=== PATIENT | female | born 1990 | race Caucasian/White ===

== ENCOUNTER 2017-02-06 18:43 | Inpatient (IN) | payer BC ==
[~2017-02-06] VITALS: Ht 177.8 cm; Wt 100.8 kg
--- NOTE | ~2017-02-06 | O ---
[place], [place] OPERATIVE NOTE [id number] UNIT #: [id number] ROOM: 504 DOCTOR: SCOTT THORNTON MD BIRTHDATE: [birth year] DOS: 02/06/2017 PREOPERATIVE DIAGNOSIS: Acute appendicitis. POSTOPERATIVE DIAGNOSIS: Acute appendicitis. PROCEDURE: Laparoscopic appendectomy. SURGEON: Scott Thornton M.D. PRIMARY CARE NURSE: MS3. ANESTHESIA: General with endotracheal intubation. INDICATIONS: This is a 26-year-old lady with a history of acute appendicitis. She is here for laparoscopic appendectomy. The procedure and its complications were explained to the patient in detail. Complications that were discussed included but were not limited to bleeding, infection, hematoma/seroma/abscess formation, and prolonged postoperative pain. She agreed to proceed. DESCRIPTION OF PROCEDURE: After identifying the patient, the patient was brought to the operating suite and laid in the supine position. After induction of general anesthesia, timeout procedure was called and took and a Byrd catheter was inserted into the urinary bladder. The left upper extremity was stuck to the patient's side. The parts were then painted and draped in the usual sterile fashion. An incision above the umbilicus was made. The skin and the subcutaneous tissue were incised in a transverse fashion. The fascia was incised and 2 stay sutures with 0 Vicryl were taken. The peritoneum was inserted and a 12 mm Dez port was introduced and pneumoperitoneum was created. Under direct vision, a left lower quadrant incision of 12 mm and a suprapubic incision of 5 mm were made and appropriate size ports were introduced. The patient was done in a Trendelenburg right side up position. The appendix was found to be acutely inflamed and had some peritoneal adhesions. These were taken down with the help of electrocautery and some bleeding from the mesoappendix was controlled with the help of endoclips. After the entire appendix and the mesoappendix were mobilized, both these structures were then stapled across with the help of an Endo-NIK stapler. The appendix was then removed from the peritoneal cavity and sent for histopathological diagnosis. Hemostasis was confirmed. Thereafter, the suprapubic and the left lower quadrant ports were removed and there was no bleeding seen. The umbilical port was also removed and the 2 stay sutures were tied together. Additional two sutures with 0 Vicryl were taken to close the fascia. Thereafter, local anesthesia was infiltrated on the wound edges (1% plain lidocaine) and the edges of the skin were then approximated with the help of 4-0 Vicryl in a subcuticular running fashion. Dressings were placed, Byrd catheter was removed. The patient was extubated uneventfully and brought back to the recovery room in stable fashion. There were no complications. Dr. Scott Thornton, the attending surgeon, was present throughout the operating case. [place], [place] OPERATIVE NOTE NAME: NEGRA MCKEON UNIT #: [id number] ROOM: [facility] DOCTOR: SCOTT THORNTON MD BIRTHDATE: [birth year] Scott Thornton MD CM:OPRECORD:OPERATIVE NOTE [id number] SCOTT THORNTON MD 02/07/17 0918 interface
[2017-02-06 19:50] LABS: BILIRUBIN NEGATIVE (NEGATIVE); BLOOD NEGATIVE (NEGATIVE); CLARITY SL CLOUDY (CLEAR); COLOR YELLOW (YELLOW); GLUCOSE NEGATIVE (NEGATIVE); KETONE NEGATIVE (NEGATIVE); LEUKO ESTERASE NEGATIVE (NEGATIVE); NITRITE NEGATIVE (NEGATIVE); PROTEIN NEGATIVE (NEGATIVE); SPECIFIC GRAVITY 1.015 (1.005-1.030); UROBILINOGEN 0.2 E.U./dl (0.2-1.0)
[2017-02-06 19:54] LABS: BASO % 0.2 % (0.0-1.0); EOS % 0.1 % (1.0-4.0); HEMOGLOBIN 13.1 g/dl (12.0-16.0); IG # 0.1 10*3/uL (0.0-0.1); LYMPH # 1.8 10*3/uL (1.3-4.4); LYMPH % 12.4 % (27.0-41.0); MEAN CELL VOLUME 81.9 fl (81.0-99.0); MEAN CORPUSCULAR HGB 27.5 pg (27.0-31.0); MEAN CORPUSCULAR HGB CONC 33.6 g/dl (33.0-37.0); MEAN PLATELET VOLUME 9.4 fl (9.6-12.3); MONO # 0.8 10*3/uL (0.1-1.0); MONO % 5.8 % (3.0-9.0); NEUT # 11.6 10*3/uL (2.3-7.9); NEUT % 81.1 % (47.0-73.0); PLATELET COUNT AUTOMATED 201 10*3/uL (130-400); RED BLOOD COUNT 4.76 10*6/uL (4.10-5.10); RED CELL DISTRI WIDTH 12.7 % (0-14.5); WHITE BLOOD COUNT 14.3 10*3/uL (4.8-10.8)
[2017-02-06 20:04] LABS: EPITHELIAL CELLS 25-30
[2017-02-06 20:05] LABS: BACTERIA TRACE; URINE REFLEX COMMENT NO (NO); WBC 0-2 wbc/hpf (0-5)
[2017-02-06 20:12] LABS: ALBUMIN 3.8 gm/dl (3.1-4.5); ALKALINE PHOSPHATASE 71 U/L (45-117); BILIRUBIN, TOTAL 0.3 mg/dl (0.2-1.0); BUN 10 mg/dl (7-24); C-REACTIVE PROTEIN 2.45 MG/DL (0-0.3); CARBON DIOXIDE 29 mmol/L (21-32); CHLORIDE 106 mmol/L (98-107); EST GLOM FILT AFRICAN AMERICAN > 60 ml/min; GLUCOSE 106 mg/dL (65-99); POTASSIUM 3.6 mmol/L (3.5-5.1); SGOT/AST 15 IU/L (3-35); SGPT/ALT 37 U/L (12-78); SODIUM 142 mmol/L (136-145); TOTAL PROTEIN 7.4 gm/dL (6.4-8.2)
[2017-02-06 23:10] VITALS: BP 140/78
[2017-02-07] VITALS (7 sets, daily range): BP systolic 104–138; BP diastolic 48–81
[2017-02-07 01:05] LABS: CPK 54 U/L (26-192)
[2017-02-07 01:07] LABS: CKMB < 0.5 ng/ml (0.5-3.6); TROPONIN I < 0.015 ng/ml (<0.045)
[2017-02-07 06:07] LABS: BASO % 0.2 % (0.0-1.0); EOS % 0.2 % (1.0-4.0); HEMATOCRIT 38.9 % (37.0-47.0); HEMOGLOBIN 12.9 g/dl (12.0-16.0); IG # 0.1 10*3/uL (0.0-0.1); LYMPH # 2.7 10*3/uL (1.3-4.4); MEAN CELL VOLUME 81.4 fl (81.0-99.0); MEAN CORPUSCULAR HGB CONC 33.2 g/dl (33.0-37.0); MEAN PLATELET VOLUME 9.6 fl (9.6-12.3); MONO # 0.9 10*3/uL (0.1-1.0); MONO % 6.5 % (3.0-9.0); NEUT # 9.4 10*3/uL (2.3-7.9); NEUT % 71.7 % (47.0-73.0); PLATELET COUNT AUTOMATED 221 10*3/uL (130-400); RED BLOOD COUNT 4.78 10*6/uL (4.10-5.10); RED CELL DISTRI WIDTH 12.8 % (0-14.5)
[2017-02-07 06:15] LABS: CPK 56 U/L (26-192)
[2017-02-07 06:23] LABS: CKMB < 0.5 ng/ml (0.5-3.6); TROPONIN I < 0.015 ng/ml (<0.045)
[2017-02-07 06:29] LABS: ALBUMIN 3.7 gm/dl (3.1-4.5); BUN 7 mg/dl (7-24); CARBON DIOXIDE 24 mmol/L (21-32); CHLORIDE 109 mmol/L (98-107); GLUCOSE 109 mg/dL (65-99); POTASSIUM 3.6 mmol/L (3.5-5.1); SODIUM 142 mmol/L (136-145)
[2017-02-07 06:40] LABS: ALKALINE PHOSPHATASE 75 U/L (45-117); BILIRUBIN, TOTAL 0.5 mg/dl (0.2-1.0); CHOLESTEROL 170 mg/dL (<200); EST GLOM FILT AFRICAN AMERICAN > 60 ml/min; FREE T4 0.86 ng/dl (0.76-1.46); HDL CHOLESTEROL 61 mg/dl (40-60); LDL CHOLESTEROL 90 mg/dL (9-159); PHOSPHOROUS 2.4 mg/dL (2.5-4.9); SGOT/AST 13 IU/L (3-35); SGPT/ALT 35 U/L (12-78); TOTAL PROTEIN 7.3 gm/dL (6.4-8.2); TRIGLYCERIDES 97 mg/dl (<150); VLDL CHOLESTEROL 19 mg/dL (6-40)
[2017-02-07 08:46] LABS: FOLIC ACID 11.85 ng/mL (>5.38); VITAMIN D, 25-HYDROXY 17.7 ng/mL (30-100)
[2017-02-07 10:08] LABS: HEMOGLOBIN A1c 5.5 % (4.8-5.6)
[2017-02-07] MEDS ORDERED: VITAMIN D-32000 UNI1 PO (13:26)
[2017-02-07] MEDS ORDERED: HYDROCODONE BIT1 T11 PO (13:26)
== END 2017-02-07 14:25 | disposition home or self-care (01) | DRG 854 ==
LOC: ED 18:43 → EDHOLD 22:28 → 5E 22:46
PROVIDERS: Hospitalist; Physician Assistant
PROC: 0DTJ4ZZ Resection of Appendix, Percutaneous Endoscopic Approach (ICD-10-PCS; principal; 2017-02-07)
DX: A41.9 Sepsis, unspecified organism (principal); K35.89 Other acute appendicitis; E66.9 Obesity, unspecified; Z68.31 Body mass index [BMI] 31.0-31.9, adult

== ENCOUNTER 2018-04-14 15:44 | Emergency (ER) | payer BC ==
[~2018-04-14] VITALS: Wt 108.9 kg
[~2018-04-14 15:44] MED LIST: HYDROCODONE BIT1 T11 PO; VITAMIN D-32000 UNI1 PO
[2018-04-14] MEDS ORDERED: Motrin,Rufen800 MG PO (16:56)
== END 2018-04-14 17:00 | disposition home or self-care (01) ==
LOC: ED 15:44
DX: S93.602A Unspecified sprain of left foot, initial encounter (principal); M25.572 Pain in left ankle and joints of left foot; Z79.899 Other long term (current) drug therapy; W17.89XA Other fall from one level to another, initial encounter; Y93.89 Activity, other specified; Y92.89 Other specified places as the place of occurrence of the external cause; Y99.8 Other external cause status

== ENCOUNTER → 2019-05-25 | Outpatient (CLI) | payer BC ==
[~2019-05-25] MED LIST changes: +Motrin,Rufen800 MG PO
[2019-05-25 10:07] LABS: BASO % 0.3 % (0.0-1.0); EOS % 0.3 % (1.0-4.0); HEMATOCRIT 41.5 % (37.0-47.0); HEMOGLOBIN 13.8 g/dl (12.0-16.0); LYMPH # 2.3 10*3/uL (1.3-4.4); LYMPH % 35.8 % (27.0-41.0); MEAN CORPUSCULAR HGB 27.3 pg (27.0-31.0); MEAN CORPUSCULAR HGB CONC 33.3 g/dl (33.0-37.0); MEAN PLATELET VOLUME 9.1 fl (9.6-12.3); MONO # 0.4 10*3/uL (0.1-1.0); MONO % 6.8 % (3.0-9.0); NEUT # 3.7 10*3/uL (2.3-7.9); NEUT % 56.5 % (47.0-73.0); PLATELET COUNT AUTOMATED 219 10*3/uL (130-400); RED BLOOD COUNT 5.06 10*6/uL (4.10-5.10); RED CELL DISTRI WIDTH 12.9 % (0-14.5); WHITE BLOOD COUNT 6.5 10*3/uL (4.8-10.8)
[2019-05-25 10:40] LABS: ALBUMIN 4.2 gm/dl (3.1-4.5); ALKALINE PHOSPHATASE 69 U/L (45-117); BUN 11 mg/dl (7-24); CHLORIDE 105 mmol/L (98-107); CREATININE 0.89 mg/dL (0.55-1.02); POTASSIUM 4.1 mmol/L (3.5-5.1); SGOT/AST 11 IU/L (3-35); SGPT/ALT 21 U/L (12-78); SODIUM 140 mmol/L (136-145); TOTAL PROTEIN 7.8 gm/dL (6.4-8.2)
== END | disposition home or self-care (01) ==
LOC: LAB 09:48
PROVIDERS: Nurse Practitioner Family
DX: M25.551 Pain in right hip (principal); M25.571 Pain in right ankle and joints of right foot; M25.572 Pain in left ankle and joints of left foot; R53.83 Other fatigue; E66.9 Obesity, unspecified

== ENCOUNTER → 2019-06-09 | Outpatient (CLI) | payer BC ==
[2019-06-11 07:06] LABS: DVVTMIXRFX CHG; LUPUS DRVVT 48.7 sec (0.0-47.0); PTT-LA 57.8 sec (0.0-51.9)
[2019-06-11 08:08] LABS: HEXAGONAL PHASE PHOSPHOLIPID 29 sec (0-11); LUPUS REFLEX INTERPRETATION Comment: (.)
== END | disposition home or self-care (01) ==
LOC: LAB 09:20
PROVIDERS: Nurse Practitioner Family
DX: R76.0 Raised antibody titer (principal)

== ENCOUNTER → 2019-09-03 | Outpatient (CLI) | payer BC | END | disposition home or self-care (01) | LOC: MRI 07:41 | DX: S86.891A Other injury of other muscle(s) and tendon(s) at lower leg level, right leg, initial encounter (principal); S86.892A Other injury of other muscle(s) and tendon(s) at lower leg level, left leg, initial encounter; X58.XXXD Exposure to other specified factors, subsequent encounter ==

== ENCOUNTER → 2019-09-06 | Outpatient (CLI) | payer BC | END | disposition home or self-care (01) | LOC: CT 00:43 | DX: J32.9 Chronic sinusitis, unspecified (principal); G44.52 New daily persistent headache (NDPH) ==

== ENCOUNTER → 2019-12-08 | Outpatient (CLI) | payer BC | END | disposition home or self-care (01) | LOC: LAB 09:34 → US 16:00 | PROVIDERS: Nurse Practitioner Women's Health | DX: Z34.81 Encounter for supervision of other normal pregnancy, first trimester (principal); Z3A.09 9 weeks gestation of pregnancy ==

== ENCOUNTER 2019-12-14 08:40 | Emergency (ER) | payer BC ==
[~2019-12-14] VITALS: Ht 175.2 cm; Wt 107.0 kg
== END 2019-12-14 13:45 | disposition home or self-care (01) ==
LOC: ED 08:40
DX: O26.851 Spotting complicating pregnancy, first trimester (principal); Z3A.12 12 weeks gestation of pregnancy; Z23 Encounter for immunization; Z79.899 Other long term (current) drug therapy

== ENCOUNTER → 2019-12-22 | Outpatient (CLI) | payer BC | END | disposition home or self-care (01) | LOC: LAB 09:34 | DX: Z34.81 Encounter for supervision of other normal pregnancy, first trimester (principal); Z3A.13 13 weeks gestation of pregnancy ==

== ENCOUNTER → 2024-09-21 | Outpatient (CLI) | payer BC | END | disposition home or self-care (01) | LOC: RAD 09:16 | PROVIDERS: ATTEND Family Medicine | DX: J18.9 Pneumonia, unspecified organism (principal); R06.02 Shortness of breath; R05.9 Cough, unspecified; R06.2 Wheezing ==